=== PATIENT | male | born 1995 | race Two or more races ===

== ENCOUNTER 2021-01-06 18:38 | Emergency (ER) | payer OTHER ==
[~2021-01-06] VITALS: Ht 175.3 cm; Wt 74.8 kg
[2021-01-06] MEDS ORDERED: ATIVAN1 M1 (19:21)
[2021-01-06] MEDS ORDERED: RISPERDAL2 MG (19:21)
[2021-01-06] MEDS ORDERED: BENADRYL25 MG (19:21)
== END 2021-01-06 22:40 | disposition home or self-care (01) ==
LOC: ER 18:38
DX: S62.396A Other fracture of fifth metacarpal bone, right hand, initial encounter for closed fracture (principal); W22.8XXA Striking against or struck by other objects, initial encounter; Y93.89 Activity, other specified; Y92.89 Other specified places as the place of occurrence of the external cause; Y99.8 Other external cause status